=== PATIENT | female | born 1955 | race Two or more races ===

== ENCOUNTER → 2017-12-29 | Outpatient (CLI) | payer OTHER ==
[~2017-12-29] MED LIST: NORC5TAB PO
--- NOTE | 2017-12-29 20:40 | EKG ---
Date Performed: 12/29/2017 Time Performed: 15:43:56 PTAGE: 62 years EKG: Sinus rhythm POSSIBLE LEFT ATRIAL ENLARGEMENT INCOMPLETE RIGHT BUNDLE BRANCH BLOCK POSSIBLE LEFT VENTRICULAR HYPE RTROPHY ABNORMAL ECG NO PREVIOUS TRACING DOCTOR: Cayden Martin Interpretating Date/Time 12/29/2017 20:38:15
== END ==
LOC: HCAV 15:21
PROVIDERS: ATTEND Surgery Surgery of the Hand
DX: Z01.810 Encounter for preprocedural cardiovascular examination (principal)
CPT/HCPCS: 93005